=== PATIENT | female | born 1995 | race Asian ===

== ENCOUNTER 2018-10-11 11:10 | Emergency (ER) | payer SELFPAY ==
[~2018-10-11] VITALS: Ht 160 cm; Wt 87.5 kg
--- NOTE | 2018-10-11 11:20 | NUR ---
BIB SELF W C/O COUGH x 3 DAYS, AFEBRILE. TO ER BED 12, HOOKED TO MONITOR, AWAITING MD MARS
--- NOTE | 2018-10-11 11:21 | NUR ---
DR DOVE AT BEDSIDE
[2018-10-11] MEDS ORDERED: IPRATROPIUM NEB FS 0.5 MG/2.5 ML AMPUL.NEB ONE (11:27)
[2018-10-11] MEDS ORDERED: ALBUTEROL FS 2.5 MG/3 ML VIAL.NEB ONE ×2 (11:27→12:55)
[2018-10-11] MEDS ORDERED: IPRATROPIUM NEB FS 0.5 MG/2.5 ML AMPUL.NEB NEB ONE (11:30)
[2018-10-11] MEDS ORDERED: ALBUTEROL FS 2.5 MG/3 ML VIAL.NEB NEB ONE (11:30)
--- NOTE | 2018-10-11 11:43 | NUR ---
ONGOING BREATHING TREATMENT
[2018-10-11] MEDS ORDERED: predniSONE 20 MG TABLET PO ONE (12:30)
[2018-10-11] MEDS ORDERED: ALBUTEROL FS 2.5 MG/0.5 ML VIAL.NEB NEB ONE (12:30)
[2018-10-11] MEDS ORDERED: predniSONE 20 MG TABLET ONE (12:47)
[2018-10-11 13:37] VITALS: BP 116/85
--- NOTE | 2018-10-11 13:37 | NUR ---
Patient discharged to home in stable condition. Written and verbal after care instructions given. Patient verbalizes understanding of instruction.
== END 2018-10-11 13:39 | disposition home or self-care (01) ==
LOC: ER 11:11
DX: J06.9 Acute upper respiratory infection, unspecified (principal); J45.909 Unspecified asthma, uncomplicated; F17.200 Nicotine dependence, unspecified, uncomplicated
CPT/HCPCS: 71045; 84703; 94640 ×2; 99284; A4606; J7512; Z7610